=== PATIENT | female | born 1950 | race Two or more races ===

== ENCOUNTER → 2016-09-28 | Outpatient (CLI) | payer OTHER ==
[~2016-09-28] MED LIST: 3N1 COMMODE MC; ASPI-781 PO; BEN25 PO; BISA10SU75 PR; CPM MC; DOCU-144 PO; NA P133E3 PR; OXYC-481 PO; PARO20TA58 PO; RANI150T9 PO; TRAM50TA2 PO; UDMOM PO; WALK1EAC23 MC
--- NOTE | 2016-09-28 15:11 | RADRPT ---
PROCEDURE: RIGHT knee x-ray CLINICAL INDICATION: PAIN TECHNIQUE: AP, lateral and oblique views of the knee were obtained. COMPARISON: Right knee x-rays 08/03/2015 FINDINGS: Redemonstrated is a right total knee replacement, stable in appearance compared to prior study of . The hardware appears intact. No lucency is seen adjacent to the hardware to suggest loosen ing. No acute fracture or dislocation is identified. Osteophytosis along the posterolateral tibial plateau is redemonstrated. A small joint effusion appears slightly decreased in size compared to pr ior study. IMPRESSION: 1. Stable right total knee replacement without evidence of hardware fracture, hardware loosening, o r acute osseous fracture. 2. Small joint effusion, decreased from prior study, possibly reflecting synovitis. RPTAT: QQ Physician Marion Date Time Electronically viewed and signed by Physician Marion on 09/28/2016 15:10 /
== END | disposition home or self-care (01) ==
LOC: HKI 08:57
PROVIDERS: ATTEND Orthopaedic Surgery
DX: M25.561 Pain in right knee (principal); T84.84XA Pain due to internal orthopedic prosthetic devices, implants and grafts, initial encounter; M25.60 Stiffness of unspecified joint, not elsewhere classified; Z96.651 Presence of right artificial knee joint
CPT/HCPCS: 73562; Z7500; G0463

== ENCOUNTER 2018-01-08 16:49 | Observation (INO) | END 2018-01-09 12:00 | disposition home or self-care (01) ==